=== PATIENT | female | born 2000 | race Caucasian/White ===

== ENCOUNTER 2023-11-16 02:50 | Inpatient (IN) | payer MEDICAID, BC ==
[2023-11-16] VITALS (19 sets, daily range): BP systolic 104–154; BP diastolic 57–97; PULSE 65–122; TEMP 87.8–98.2
[~2023-11-16] VITALS: Ht 157.5 cm; Wt 70.5 kg
--- NOTE | 2023-11-16 02:51 | NUR ---
0251 G1L0 40.5 WEEK GEST TO LR4 IN [employer] WITH URGE TO BEAR DOWN. TO BED AND SVE DONE 9 CM WITH BULGING BAG OF WATER. WANTING AN EPIDURAL 0300 DR MOLINA CALLED AND REPORT GIVEN. RAILROAD [employer] CALLED FOR EPIDURAL PLACEMENT
--- NOTE | 2023-11-16 03:05 | NUR ---
0305 IV STARTED. SITTING ON SIDE OF BED WAITING FOR EPIDRUAL 0310 EPID PLACED AND DOSED. SEE [facility] RECORDS FOR MORE INFORMATION.
[2023-11-16 03:16] LABS: BASO % 0.4 % (0.0-2.0); EOS % 0.4 % (0.0-4.0); GRAN # 7.4 K/mm3 (1.4-6.5); GRAN % 74.1 % (42.2-75.2); HEMATOCRIT 38.1 % (37.0-47.0); HEMOGLOBIN 13.1 g/dl (12.5-16.0); LYMPH % 19.7 % (20.0-51.0); MEAN CELL VOLUME 91 fl (80.0-100.0); MEAN CORPUSCULAR HEMOGLOBIN 31 pg (27-31); MEAN CORPUSCULAR HGB CONC 34 g/dl (33.0-37.0); MEAN PLATELET VOLUME 10.2 fl (7.4-10.4); MONO # 0.5 K/mm3 (0.1-0.6); MONO % 5.1 % (1.7-9.3); PLATELET COUNT 314 K/mm3 (130-400); REDCELL DISTRIBUTION WIDTH-CV 14.1 % (11.5-14.5)
[2023-11-16] MEDS ORDERED: PRENATAL TABLET PO (03:32)
--- NOTE | 2023-11-16 03:44 | NUR ---
0344 SROM WITH CLEAR FLUID AND COMPLETE DILITATION. INSTRUCTED TO PUSH WITH CONTRACTIONS
--- NOTE | 2023-11-16 05:02 | NUR ---
0502 DR DE LOS SANTOS HERE. READIED FOR DELIVERY 0507 DELIVERY VIABLE MALE OVER 2 DEGREE LAC. / APGARS. IV CONTS TO INFUSE.
[2023-11-17 00:14] VITALS: BP 114/63; PULSE 79; TEMP 98.1
[2023-11-17 07:45] VITALS: BP 115/75; PULSE 74; TEMP 97.8
--- NOTE | 2023-11-17 07:45 | NUR ---
Rests in bed, alert. States baby not eating. 0755 This nurse assist with baby . Baby latches on.
[2023-11-17] MEDS ORDERED: IBU800 M1 PO (11:05)
--- NOTE | 2023-11-17 12:15 | NUR ---
Breast feeding baby, denies any needs at this time.
--- NOTE | 2023-11-17 14:00 | NUR ---
Discharge instructions given, verbalizes understanding.
== END 2023-11-17 14:30 | disposition home or self-care (01) | DRG 807 ==
LOC: LDRO 02:50 → LDR 02:51 → OB 15:21
PROVIDERS: Student in an Organized Health Care Education/Training Program; ADMIT Obstetrics & Gynecology
PROC: 10E0XZZ Delivery of Products of Conception, External Approach (ICD-10-PCS; principal; 2023-11-16)
PROC: 0KQM0ZZ Repair Perineum Muscle, Open Approach (ICD-10-PCS; 2023-11-16)
DX: O48.0 Post-term pregnancy (principal); Z37.0 Single live birth; Z3A.40 40 weeks gestation of pregnancy; O99.344 Other mental disorders complicating childbirth; O99.02 Anemia complicating childbirth; D64.9 Anemia, unspecified; F41.9 Anxiety disorder, unspecified; O76 Abnormality in fetal heart rate and rhythm complicating labor and delivery; O70.1 Second degree perineal laceration during delivery
CPT/HCPCS: J2590; J2795; J7120